=== PATIENT | female | born 1960 | race Caucasian/White ===

== ENCOUNTER 2021-05-04 11:37 | Outpatient (CLI) | payer BC ==
--- NOTE | 2021-05-04 15:14 | XRAY Report ---
PROCEDURE: Elbow 2 View LT INDICATIONS: PAIN IN LEFT ELBOW TECHNIQUE: 2 views of the elbow were acquired. COMPARISON: None FINDINGS: Bones: No fractures or dislocations. No suspicious bony lesions. Soft tissues: No elbow joint effusion. No suspicious soft tissue calcifications. IMPRESSION: No trauma found. Source of pain is not identified. Reviewed by: Fadi Morales MD on 05/04/2021 3:13 PM PDT Approved by: Fadi Morales MD on 05/04/2021 3:13 PM PDT Station ID: [id number]
== END 2021-05-04 11:38 | disposition home or self-care (01) ==
LOC: DI 11:37
PROVIDERS: ATTEND Nurse Practitioner Family
DX: M25.522 Pain in left elbow (principal)

== ENCOUNTER 2021-06-18 10:58 | Outpatient (CLI) | payer MEDICARE | END 2021-06-18 10:59 | disposition home or self-care (01) | LOC: LAB 10:58 | PROVIDERS: ATTEND Nurse Practitioner Family | DX: E03.9 Hypothyroidism, unspecified (principal) | CPT/HCPCS: 36415; 84443 ==

== ENCOUNTER 2021-11-22 14:35 | Outpatient (CLI) | payer MEDICARE ==
[2021-11-22 15:26] LABS: THYROID STIMULATING HORMONE 0.93 uIU/mL (0.34-5.60)
== END 2021-11-22 14:36 | disposition home or self-care (01) ==
LOC: LAB 14:35
PROVIDERS: ATTEND Nurse Practitioner Family
DX: E03.9 Hypothyroidism, unspecified (principal)
CPT/HCPCS: 36415; 84443

== ENCOUNTER 2021-12-19 08:42 | Outpatient (CLI) | payer BC ==
--- NOTE | 2021-12-19 09:33 | CT Report ---
PROCEDURE: Low Dose Lung Cancer Screen INDICATIONS: SMOKER TECHNIQUE: Noncontrast low-dose images were acquired from the pulmonary apices to the posterior costophrenic ang les. Multiplanar MIP reformats were then acquired. For radiation dose reduction, the following was used: automated exposure control, adjustment of mA and/or kV according to patient size. COMPARISON: None. FINDINGS: Image quality: Excellent. Lungs and pleura: Mild emphysematous change. A few small pulmonary nodules measuring 0.4 cm or less. For example left apex measuring 0.3 cm, (4/48). A few calcified granuloma. Airways are clear. No ple ural effusion. No pneumothorax. Mediastinum: Heart size is normal. Moderate coronary artery calcifications. No pericardial effusion . No mediastinal adenopathy by size criteria. Thoracic aorta and central pulmonary arteries are nor mal in size. Esophagus is normal in caliber. No hiatal hernia. Bones and chest wall: No suspicious bony lesions. No vertebral body compression fractures. No axil hayley or supraclavicular adenopathy by size criteria. The thyroid is normal in size and there are no incidental findings. Abdomen: Visualized upper abdomen solid organs and bowel loops appear normal in the absence of contr ast. Cholelithiasis. IMPRESSION: 1. No significant pulmonary nodules. Lung-RADS 2. Recommend follow-up lung cancer screening Chest CT in 12 months. 2. Moderate coronary artery calcifications. 3. Cholelithiasis. Reviewed by: Aly Soliman MD on 12/19/2021 8:32 AM CHELY Approved by: Aly Soliman MD on 12/19/2021 8:32 AM AKBRANDON Station ID: [id number]
== END 2021-12-19 08:43 | disposition home or self-care (01) ==
LOC: DI 08:42
PROVIDERS: ATTEND Nurse Practitioner Family
DX: Z12.2 Encounter for screening for malignant neoplasm of respiratory organs (principal); I25.10 Atherosclerotic heart disease of native coronary artery without angina pectoris; K80.20 Calculus of gallbladder without cholecystitis without obstruction; F17.200 Nicotine dependence, unspecified, uncomplicated

== ENCOUNTER 2022-01-14 11:00 | Outpatient (CLI) | payer BC, MEDICARE ==
--- NOTE | 2022-01-15 10:25 | Mammography Report ---
BILATERAL DIGITAL SCREENING MAMMOGRAM 3D/2D: 01/14/2022 CLINICAL: Routine screening. Comparison is made to exams dated: 05/16/2020 mammogram, 02/28/2018 mammogram, 03/22/2015 mammogram, stereotactic biopsy, 04/27/2013 mammogram, and 03/17/[place] [facility] [place] The tissue of both breasts is heterogeneously dense. This may lower the sensitivity of mammogra phy. No significant masses, calcifications, or other findings are seen in either breast. There has been no significant interval change. IMPRESSION: NEGATIVE There is no mammographic evidence of malignancy. A 1 year screening mammogram is recommended. This exam was interpreted at Station ID: [id number]. NOTE: For mammograms, a report in lay terms will be sent to the patient. Approximately 15% of breast malignancies will not be visualized mammographically. In the management of a palpable breast mass, a negative mammogram must not discourage biopsy of a clinically suspicious lesion. Electronically Signed By: Jojo reddy/rosana:01/14/2022 13:28:01 ACR BI-RADS Category 1: Negative 3341F PARENCHYMAL PATTERN: (D) - The breast(s) demonstrate(s) heterogeneously dense fibroglandular michelle bingham. BI-RADS CATEGORY: (1) - 1 RECOMMENDATION: (ANNUAL) - Recommend routine annual screening mammography. [id number] 1 year screening LATERALITY: (B)
== END 2022-01-14 11:01 | disposition home or self-care (01) ==
LOC: DI.N 11:00
PROVIDERS: ATTEND Nurse Practitioner Family
DX: Z12.31 Encounter for screening mammogram for malignant neoplasm of breast (principal)

== ENCOUNTER 2022-06-24 10:15 | Outpatient (CLI) | payer BC ==
[2022-06-24 11:02] LABS: THYROID STIMULATING HORMONE 0.48 uIU/mL (0.34-5.60)
== END 2022-06-24 10:16 | disposition home or self-care (01) ==
LOC: LAB 10:15
PROVIDERS: ATTEND Nurse Practitioner Family
DX: E03.9 Hypothyroidism, unspecified (principal)
CPT/HCPCS: 36415; 84443

== ENCOUNTER 2023-09-22 15:02 | Outpatient (CLI) | payer BC ==
--- NOTE | 2023-09-23 08:49 | Mammography Report ---
BILATERAL DIGITAL SCREENING MAMMOGRAM 3D/2D: 09/22/2023 CLINICAL: Routine screening. Comparison is made to exams dated: 01/14/2022 mammogram - [facility], 05/16/2020 [facility] mogram, 02/28/2018 mammogram, and 03/22/2015 mammogram - [facility] [place]. There are scattered areas of fibroglandular density in both breasts (category b / 25%-50% glandular t issue). No significant masses, calcifications, or other findings are seen in either breast. There has been no significant interval change. IMPRESSION: NEGATIVE There is no mammographic evidence of malignancy. A 1 year screening mammogram is recommended. Based on the Tyrer Cuzick model (a risk assessment model) the patients lifetime risk is 5.7% and her 10 year risk is 2.5%. According to the ACR, ACS, and NCCN guidelines, an annual breast MRI exam herbert g with mammogram is recommended if the patients lifetime risk is 20% or greater. This exam was interpreted at Station ID: [id number]. NOTE: For mammograms, a report in lay terms will be sent to the patient. Approximately 15% of breast malignancies will not be visualized mammographically. In the management of a palpable breast mass, a negative mammogram must not discourage biopsy of a clinically suspicious lesion. Electronically Signed By: Jojo reddy/rosana:09/22/2023 16:55:03 letter sent: No_Letter ACR BI-RADS Category 1: Negative 3341F PARENCHYMAL PATTERN: (A) - The breast(s) demonstrate(s) scattered fibroglandular densities. BI-RADS CATEGORY: (1) - 1 Mammogram [id number] 1 year screening LATERALITY: (B)
== END 2023-09-22 15:03 | disposition home or self-care (01) ==
LOC: DI 15:02
PROVIDERS: ATTEND Registered Nurse
DX: Z12.31 Encounter for screening mammogram for malignant neoplasm of breast (principal); R92.323 Mammographic fibroglandular density, bilateral breasts

== ENCOUNTER 2023-10-30 11:14 | Outpatient (CLI) | payer BC ==
--- NOTE | 2023-10-30 14:40 | CT Report ---
PROCEDURE: Lung Cancer Screen INDICATIONS: SMOKER TECHNIQUE: A CT scan of the chest was performed. Intravenous contrast media was not administered. Images were re corded and evaluated at appropriate window settings. Reformats: axial MIP of the chest, coronal and s agittal. For radiation dose reduction, the following was used: automated exposure control, adjustment of mA and/or kV according to patient size. COMPARISON: CT chest on December 19, 2021. FINDINGS: Image quality: Excellent. Prior cancer history: No. Lungs and pleura: No pleural effusions. No pneumothorax. Compared to CT chest dated December 19, 2021, no new or enlarging solid pulmonary nodules or consolidation. A few stable scattered pulmonary nodule s. For example, bilateral upper lobes measure 3 mm (01/25, ). Stable centrilobular nodules with bron chial wall thickening in the middle lobe and lingula. A few scattered calcified granulomas. Patent ce ntral airways. Mediastinum: Heart size is normal. No pericardial effusion. No large vessel abnormality. No mediastin al adenopathy by size criteria. Two vessel coronary artery calcifications which is moderate to sever e. Chest wall and lower neck: Thyroid is unremarkable. No axillary or supraclavicular adenopathy by size . Bones: No aggressive osseous abnormality. No acute fractures. Lvle-cy-wjsfybnt multilevel degenerativ e changes of the spine. Upper Abdomen: Partially visualized cholelithiasis. Mild calcification of the abdominal aorta.. IMPRESSION: 1. Compared to CT chest dated December 19, 2021, no new or enlarging palpable solid pulmonary nodules. A few stable scattered pulmonary nodules. Lung RAD: 2 - Benign. Recommendation: Continue annual screening in 12 Months with LDCT 2. Stable centrilobular nodules with mild bronchial wall thickening in the middle lobe and lingula pike ggestive of chronic infection (such as MAC) or inflammation. 3. Moderate to severe LAD and left circumflex coronary vessel calcifications. 4. Cholelithiasis without acute cholecystitis. Reviewed by: Nilay Cortes MD on 10/30/2023 2:38 PM PST Approved by: Nilay Cortes MD on 10/30/2023 2:38 PM PST Station ID: [id number]
== END 2023-10-30 11:15 | disposition home or self-care (01) ==
LOC: DI 11:14
PROVIDERS: ATTEND Physician Assistant
DX: Z12.2 Encounter for screening for malignant neoplasm of respiratory organs (principal); F17.210 Nicotine dependence, cigarettes, uncomplicated; R91.8 Other nonspecific abnormal finding of lung field; I25.10 Atherosclerotic heart disease of native coronary artery without angina pectoris; K80.20 Calculus of gallbladder without cholecystitis without obstruction

== ENCOUNTER 2024-06-08 08:17 | Outpatient (CLI) | payer BC ==
[2024-06-08 08:32] LABS: BASOPHILS # (AUTO) 0.1 10^3/uL (0.0-0.1); EOSINOPHILS # (AUTO) 0.1 10^3/uL (0.0-0.7); EOSINOPHILS % (AUTO) 1.5 %; HCT - HEMATOCRIT 42.1 % (37.0-47.0); HGB - HEMOGLOBIN 14.2 g/dL (12.0-16.0); LYMPHOCYTES # (AUTO) 1.5 10^3/uL (1.5-3.5); MEAN CORPUSCULAR HEMOGLOBIN 31.6 pg (27.0-31.0); MEAN CORPUSCULAR HGB CONC 33.7 g/dL (32.0-36.0); MEAN CORPUSCULAR VOLUME 93.6 fL (81.0-99.0); MEAN PLATELET VOLUME 8.9 fL (7.9-10.8); MONOCYTES # (AUTO) 0.5 10^3/uL (0.0-1.0); NEUTROPHILS # (AUTO) 3.7 10^3/uL (1.5-6.6); NEUTROPHILS % (AUTO) 63.3 %; PLT - PLATELET COUNT 267 10^3/uL (130-450); RED CELL DISTRIBUTION WIDTH 12.3 % (12.0-15.0); WHITE BLOOD COUNT 5.9 x10^3/uL (4.8-10.8)
[2024-06-08 08:46] LABS: ALBUMIN/GLOBULIN RATIO 1.6 (1.0-2.2); ALKALINE PHOSPHATASE 81 IU/L (42-121); ALT ALANINE AMINOTRANSFERASE 21 IU/L (10-60); AST ASPARTATE AMINOTRANSFERASE 20 IU/L (10-42); BILIRUBIN,TOTAL 0.6 mg/dL (0.2-1.0); BUN - BLOOD UREA NITROGEN 18 mg/dL (6-20); CALCIUM 9.4 mg/dL (8.5-10.3); CARBON DIOXIDE - CO2 28 mmol/L (21-32); CHLORIDE 109 mmol/L (101-111); CHOL/HDL RATIO 2.7 (<4.4); CHOLESTEROL 161 mg/dL; CREATININE 0.9 mg/dL (0.6-1.3); GFR - MDRD 63 (>89); GLUCOSE 88 mg/dL (74-104); HDL CHOLESTEROL 60 mg/dL; LDL CHOLESTEROL,CALCULATED 81 mg/dL; LDL/HDL RATIO 1.4 (<4.4); POTASSIUM 4.4 mmol/L (3.5-4.5); SODIUM 141 mmol/L (135-145); TOTAL PROTEIN 6.5 g/dL (6.4-8.9); TRIGLYCERIDES 102 mg/dL; VLDL CHOLESTEROL 20 mg/dL
== END 2024-06-08 08:18 | disposition home or self-care (01) ==
LOC: LAB 08:17
PROVIDERS: ATTEND Physician Assistant
DX: E78.5 Hyperlipidemia, unspecified (principal); I25.84 Coronary atherosclerosis due to calcified coronary lesion; E03.9 Hypothyroidism, unspecified
CPT/HCPCS: 36415; 80053; 80061; 83721; 84439; 84443; 84481; 85025